=== PATIENT | female | born 1990 | race Two or more races ===

== ENCOUNTER 2016-12-30 00:08 | Emergency (ER) | payer MEDICAID, OTHER ==
[~2016-12-30] VITALS: Ht 162.6 cm; Wt 103.9 kg
[~2016-12-30 00:08] MED LIST: PREN-125
[2016-12-30 00:37] LABS: Urine Bilirubin Negative (Negative); Urine Blood Negative /uL (Negative); Urine Color Yellow (Yellow); Urine Glucose Normal (Normal); Urine Ketone Negative (Negative); Urine Mucus FEW (None Seen); Urine Nitrite Negative (Negative); Urine RBC 1 /hpf (0 - 4); Urine Squamous Epithelial Cell MOD /hpf (<5); Urine Urobilinogen Normal (Negative)
[2016-12-30 00:49] LABS: Basophils # (auto) 0.1 uL; Basophils % (auto) 0.6 % (0.0-2.0); DEFINITIVE SEE PRINTOUT; Eosinophils # (auto) 0.2 uL; Eosinophils % (auto) 1.4 % (0.0-7.0); Hematocrit 35.1 % (36.0-46.0); Hemoglobin 11.6 g/dL (12.2-16.2); Lymphocytes # (auto) 1.8 uL; Lymphocytes % (auto) 10.5 % (10.0-50.0); Mean Corpuscular Hemoglobin 26.6 pg (28.0-32.0); Mean Corpuscular Hgb Conc. 33.1 g/dL (32.0-36.0); Mean Corpuscular Volume 80.5 fL (80.0-100.0); Mean Platelet Volume 8.8 fL (7.4-10.4); Monocytes % (auto) 5.9 % (0.0-12.0); Neutrophils # (auto) 13.7 uL; Neutrophils % (auto) 81.6 % (37.0-80.0); Platelet Count (auto) 276 10^3/uL (140-450); SUSPECT SEE PRINTOUT; White Blood Cell 16.8 10^3/uL (4.4-10.8)
[2016-12-30 01:18] LABS: Albumin 3.7 g/dL (3.4-5.0); Calcium 9.1 mg/dL (8.5-10.1); Potassium 3.6 mmol/L (3.5-5.1)
[2016-12-30 01:20] LABS: Bilirubin, Total 0.3 mg/dL (0.2-1.0); Total Protein 7.8 g/dL (6.4-8.2)
[2016-12-30] MEDS ORDERED: cefTRIAXone 1GM/50ML D5W 50 ML IV ONE (07:00)
[2016-12-30 07:25] VITALS: BP 115/78
== END 2016-12-30 11:50 | disposition home or self-care (01) ==
LOC: ER 00:08
DX: O23.41 Unspecified infection of urinary tract in pregnancy, first trimester (principal); Z3A.01 Less than 8 weeks gestation of pregnancy
CPT/HCPCS: 36415; 76801; 76817; 80053; 81001; 81025; 84702; 85025; 96365; 99285; J0696

== ENCOUNTER 2017-04-16 14:15 | Observation (INO) | payer SELFPAY ==
[~2017-04-16] VITALS: Ht 157.5 cm; Wt 101.2 kg
[2017-04-16 16:55] VITALS: BP 126/69
== END 2017-04-16 16:12 | disposition home or self-care (01) | DRG 781 ==
LOC: ER 14:15 → LDRP 14:16
PROVIDERS: ADMIT Obstetrics & Gynecology; ATTEND Obstetrics & Gynecology
DX: O26.892 Other specified pregnancy related conditions, second trimester (principal); N89.8 Other specified noninflammatory disorders of vagina; R10.9 Unspecified abdominal pain; Z3A.24 24 weeks gestation of pregnancy
CPT/HCPCS: 59025; 81002; G0378